=== PATIENT | male | born 1975 | race Caucasian/White ===

== ENCOUNTER 2017-09-20 19:54 | Emergency (ER) | payer BC ==
--- NOTE | 2017-09-20 21:04 | EDM.PDOC ---
ED HPI GENERAL MEDICAL PROBLEM - General Chief Complaint: Neuro Symptoms/Deficits Stated Complaint: LIGHTHEADED/DIZZY Time Seen by Provider: 09/20/17 20:43 Source of Information: Reports: Patient History Limitations: Reports: No Limitations - History of Present Illness INITIAL COMMENTS - FREE TEXT/NARRATIVE: The patient states that he had a subjective fever, chills, body aches, generalized weakness, and dyspnea on exertion yesterday. He states that he felt lightheaded yesterday, worse today, all the time, even if supine. He developed epigastric pain, sharp in character, last night, which is worse today. He developed perioral tingling today. No recent chest pain or palpitations. No recent nausea, vomiting, diarrhea, or urinary symptoms. He states that he has not had a bowel movement in the last 4 days. The patient states that he had similar symptoms 3 years ago, and was found to have bleeding ulcers. He reports no recent bloody or melenic stools. The patient does not of the PCP. He did not receive an influenza vaccine this season. 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: dayquil - Related Data Allergies Allergy/AdvReac Type Severity Reaction Status Date / Time No Known Allergies Allergy Verified 09/20/17 20:25 Home Meds: Home Meds Oseltamivir [Tamiflu] 1 cap PO Q12H #9 cap 09/21/17 [Rx] Past Medical History Gastrointestinal History: Reports: PUD - Past Surgical History GI Surgical History: Reports: Appendectomy, EGD Social & Family History - Family History Family Medical History: Noncontributory - Tobacco Use Smoking Status *Q: Current Every Day Smoker Years of Tobacco use: 20 Packs/Tins Daily: 0.8 - Caffeine Use Caffeine Use: Reports: Coffee, Energy Drinks - Alcohol Use Alcohol Use History: Yes Alcohol Use Frequency: Rarely - Recreational Drug Use Recreational Drug Use: No - Living Situation & Occupation Living situation: Reports: , with Spouse, with Family (3 kids) Occupation: Employed ([employer]) ED ROS GENERAL - Review of Systems Review Of Systems: ROS reveals no pertinent complaints other than HPI. ED EXAM, GENERAL - Physical Exam Exam: See Below Exam Limited By: No Limitations General Appearance: Alert, WD/WN, No Apparent Distress Eye Exam: Bilateral Eye: Normal Inspection Ears: Normal External Exam, Hearing Grossly Normal Nose: Normal Inspection, No Blood Throat/Mouth: Normal Inspection, Normal Lips, Normal Voice, No Airway Compromise Head: Atraumatic, Normocephalic Neck: Normal Inspection, Full Range of Motion Respiratory/Chest: No Respiratory Distress, Lungs Clear, Normal Breath Sounds, No Accessory Muscle Use Cardiovascular: Normal Peripheral Pulses, Regular Rate, Rhythm, No Gallop, No JVD, No Murmur, No Rub Peripheral Pulses: 4+: Radial (L), Radial (R) GI/Abdominal: Normal Bowel Sounds, Soft, Non-Tender, No Organomegaly, No Distention, No Abnormal Bruit, No Mass (Male) Exam: Deferred Rectal (Males) Exam: Deferred Back Exam: Normal Inspection, Full Range of Motion, NT Extremities: Normal Inspection, Normal Range of Motion, No Pedal Edema, Normal Capillary Refill Neurological: Alert, Oriented, Normal Cognition, No Motor/Sensory Deficits Psychiatric: Normal Affect Skin Exam: Warm, Dry, Intact, Normal Color, No Rash Course - Vital Signs Last Recorded V/S: Last Vital Signs Temp 37.7 C 09/20/17 20:16 Pulse 93 09/20/17 20:16 Resp 18 09/20/17 20:16 BP 129/85 09/20/17 20:16 Pulse Ox 97 09/20/17 20:16 Orthostatic Blood Pressure [ 109/80 Standing] Orthostatic Blood Pressure [ 122/79 Supine] - Orders/Labs/Meds Labs: Laboratory Tests 09/20/17 09/20/17 Range/Units 21:10 21:10 WBC 5.80 (4.23-9.07) K/mm3 RBC 5.00 (4.63-6.08) M/mm3 Hgb 15.3 (13.7-17.5) gm/L Hct 44.2 (40.1-51.0) % MCV 88.4 (79.0-92.2) fl MCH 30.6 (25.7-32.2) pg MCHC 34.6 (32.2-35.5) g/dl RDW Std Deviation 39.6 (35.1-43.9) fL Plt Count 165 (163-337) K/mm3 MPV 9.5 (9.4-12.3) fl Neutrophils % (Manual) 66 H (40-60) % Band Neutrophils % 0 (0-10) % Lymphocytes % (Manual) 26 (20-40) % Atypical Lymphs % 0 % Monocytes % (Manual) 7 (2-10) % Eosinophils % (Manual) 1 (0.8-7.0) % Basophils % (Manual) 0 L (0.2-1.2) Platelet Estimate Adequate Plt Morphology Comment Normal RBC Morph Comment Not Reportable Sodium 139 (136-145) mEq/L Potassium 4.4 (3.5-5.1) mEq/L Chloride 101 (98-107) mEq/L Carbon Dioxide 28 (21-32) mEq/L Anion Gap 14.4 (5-15) BUN 10 (7-18) mg/dL Creatinine 1.2 (0.7-1.3) mg/dL Est Cr Clr Drug Dosing 84.49 mL/min Estimated GFR (MDRD) > 60 (>60) mL/min BUN/Creatinine Ratio 8.3 L (14-18) Glucose 75 (74-106) mg/dL Calcium 8.4 L (8.5-10.1) mg/dL Total Bilirubin 0.6 (0.2-1.0) mg/dL AST 24 (15-37) U/L ALT 24 (16-63) U/L Alkaline Phosphatase 92 (46-116) U/L Total Protein 7.8 (6.4-8.2) g/dl Albumin 4.1 (3.4-5.0) g/dl Globulin 3.7 gm/dL Albumin/Globulin Ratio 1.1 (1-2) Lipase 238 (73-393) U/L Meds: Medications Discontinued Medications Generic Name Dose Route Start Last Admin Trade Name Guzmanq PRN Reason Stop Dose Admin Oseltamivir Phosphate 75 mg 09/20/17 21:52 09/20/17 22:03 Tamiflu PO 09/20/17 21:53 75 mg ONETIME ONE Administration - Re-Assessments/Exams Free Text/Narrative Re-Assessment/Exam: 09/20/17 21:00 The patient is not orthostatic. The cause of the patient's numerous symptoms are not obvious, but I suspect that the patient is suffering from anxiety. While he feels chilled, he does not actually have a fever. He feels lightheaded, but, as above, he is not orthostatic. He states that his symptoms are similar to when he had bleeding ulcers about 3 years ago, but has not had any nausea, black, or bloody stools, indeed, the patient has not had a bowel movement in the past 4 days. On examination, his abdomen is soft, with normoactive bowel sounds. I ordered blood work, a chest x-ray, and an influenza swab, but I don't believe that a CT scan of the abdomen and pelvis is indicated at this time. 09/20/17 21:51 Two-view chest radiograph appears to be grossly normal. Cardiac silhouette is within normal limits. No pulmonary vascular congestion. No pleural effusions. No focal infiltrate. No pneumothorax. Formal read per the Radiologist pending. The patient's influenza swab has returned positive for Influenza B. Because the symptoms began yesterday, he is a candidate for Tamiflu. I will start him on that now. 09/21/17 01:06 Test results discussed with the patient. As above, the patient is positive for Influenza B, and has been started on Tamiflu. The remainder of his workup is unremarkable. I will e-prescribe a five-day course of Tamiflu, and discharge the patient home with a note for work. I will refer him to Dr. Good for follow-up. Departure - Departure Time of Disposition: 01:07 Disposition: Home, Self-Care 01 Condition: Fair Clinical Impression: Influenza B - Discharge Information Prescriptions: Oseltamivir [Tamiflu] 1 cap PO Q12H #9 cap Instructions: Influenza, Adult, [id number] Referrals: PCP,None [Primary Care Provider] - Carlos Good [Physician] - Forms: ED Department Discharge, ED Return to Work/School Form Additional Instructions: You were seen in the emergency room for chills, upper abdominal pain, lightheadedness, body aches, and generalized weakness. Workup in the ER included blood work, an influenza swab, a chest x-ray, and positional blood pressure checks. Your workup found that you are positive for Influenza B. The remainder of your workup was unremarkable. You have been started on the anti-influenza medicine Tamiflu. A prescription for this has been sent to the [facility], [address], located across the street from [facility]. Take one tablet every 12 hours, starting Friday morning, 09/21/2017, as prescribed. For significant body aches, take [id number] Tylenol or ibuprofen. Stay well hydrated. A note has been written to allow you to return to work 09/23/2017. Follow-up with Dr. Good if you need more time off than that. If any other problems, please do not hesitate to return to the ER.
[2017-09-20] MEDS ORDERED: Oseltamivir 75 MG Cap PO ONE (21:52)
--- NOTE | 2017-09-21 14:55 | CR ---
Chest: Two views of the chest were obtained. Comparison: No prior chest x-ray. Heart size and mediastinum are within normal limits. Lungs are clear. Bony structures are unremarkable. Impression: 1. Nothing acute is identified on two-view chest x-ray. Diagnostic code #1
== END 2017-09-21 01:20 | disposition home or self-care (01) ==
LOC: EDBD 19:54 → JD.ED 19:54
DX: J10.1 Influenza due to other identified influenza virus with other respiratory manifestations (principal); F17.210 Nicotine dependence, cigarettes, uncomplicated
CPT/HCPCS: 36415; 71046; 80053; 83690; 85025; 87804; 99284; A9270; 99283